=== PATIENT | male | born 1985 | race American Indian/Alaskan Native ===

== ENCOUNTER 2016-11-20 16:27 | Emergency (ER) | payer MEDICARE, MEDICAID ==
[~2016-11-20] VITALS: Ht 182.9 cm; Wt 70.0 kg
[~2016-11-20 16:27] MED LIST: AMBI5TAB PO; ARIP30 PO; ARIP400P IM; LORA-474 PO
[2016-11-20 16:46] VITALS: BP 120/71; PULSE 100; RESP 15; TEMP 97.5; O2SAT 100
[2016-11-20] MEDS ORDERED: OLANZapine IM 10 MG VIAL IM ONE ×2 (16:51→17:00)
[2016-11-20] MEDS ORDERED: LORazepam 2 MG/ML VIAL ONE (16:51)
[2016-11-20] MEDS ORDERED: diphenhydrAMINE HCL 50 MG/ML VIAL IM ONE (17:00)
[2016-11-20] MEDS ORDERED: LORazepam 2 MG/ML VIAL IM ONE (17:00)
--- NOTE | 2016-11-20 17:01 | PD ---
HPI Chief Complaint: Psychiatric Symptoms Time Seen by Provider: 16:51 Travel History International Travel<30 days: No Contact w/Intl Traveler<30days: No Traveled to known affect area: No History of Present Illness HPI This is a 31-year-old gentleman with a history of schizophrenia, who is brought in under police Swartz act after he was found to be acutely psychotic. The patient has flight of ideas and is randomly talking about being raped his and other people being raped. When trying to get further details, the patient is unable to give any further details. When asked why he was agitated, patient goes on to multiple different subjects and cannot stay coherent to 1 specific subject. The patient denies any ingestion of drugs or alcohol. 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 The patient also talks about putting peoples bones back together as a medic. The patient then immediately stated that he was not allowed in the secondary to having other issues. The patient denies any pain. There are no other symptoms elicited. PFSH Past Medical History Asthma: No Anxiety: Yes Depression: No Diminished Hearing: No Endocrine: Yes Psychiatric: Yes Schizophrenia: Yes Thyroid Disease: Yes (PER MOTHER) Social History Alcohol Use: Yes (occasional) Tobacco Use: Yes Substance Use: No Allergies-Medications (Allergen,Severity, Reaction): Coded Allergies: Seroquel (Verified Allergy, Severe, Bradycardia, 03/24/16) Reported Meds & Prescriptions Reported Meds & Active Scripts Active Reported Abilify (Aripiprazole) 30 Mg Tab 30 Mg PO DAILY Review of Systems ROS Limitations: Uncooperative, Combative, Other: (patient is severely psychotic and combative. He is very agitated and aggressive.) Except as stated in HPI: all other systems reviewed are Neg Psychiatric: Positive: Disorder of Thought, Other (agitated and aggressive) Physical Exam Narrative GENERAL: Well-developed well-nourished gentleman who is acutely psychotic. SKIN: Warm and dry. HEAD: Atraumatic. Normocephalic. EYES:No scleral icterus. No injection or drainage. ENT: Mucous membranes pink and moist. NECK: Trachea midline. Supple. CARDIOVASCULAR: Regular rate and rhythm. No murmur appreciated. RESPIRATORY: No accessory muscle use. Clear to auscultation. Breath sounds equal bilaterally. GASTROINTESTINAL: Abdomen soft, non-tender, nondistended. Hepatic and splenic margins not palpable. MUSCULOSKELETAL: No obvious deformities. No edema. NEUROLOGICAL: Awake and psychotic. No obvious cranial nerve deficits. Motor grossly within normal limits. Normal speech. PSYCHIATRIC: She really psychotic with flight of ideas. Insight and judgment is abnormal. Data Data Last Documented VS Vital Signs Date Time Temp Pulse Resp B/P Pulse Ox O2 Delivery O2 Flow Rate FiO2 11/20/16 16:46 97.5 100 15 120/71 100 Orders Olanzapine Inj (Zyprexa Inj) (11/20/16 16:51) Lorazepam Inj (Ativan Inj) (11/20/16 16:51) Olanzapine Inj (Zyprexa Inj) (11/20/16 17:00) Lorazepam Inj (Ativan Inj) (11/20/16 17:00) Diphenhydramine Inj (Benadryl Inj) (11/20/16 17:00) Complete Blood Count With Diff (11/20/16 17:10) Comprehensive Metabolic Panel (11/20/16 17:10) Psych Screen (11/20/16 17:10) Drug Screen, Random Urine (11/20/16 17:10) Alcohol (Ethanol) (11/20/16 17:10) Diet Regular Basic (11/20/16 Dinner) MDM Medical Decision Making Medical Screen Exam Complete: Yes Emergency Medical Condition: Yes Medical Record Reviewed: Yes Differential Diagnosis Acute exacerbation of schizophrenia. Versus substance induced mood disorder metabolic derangement. Narrative Course 31-year-old gentleman with obvious schizophrenic, presents today with complaints of delusional thought process. The patient is in obvious acute psychosis. He is refusing laboratory tests. He came in acutely psychotic and was given 10 mg of Zyprexa, 25 mg of Benadryl, 2 mg of Ativan. Diagnosis Primary Impression: Acute psychosis Additional Impressions: Personal history of schizophrenia medically clear. Ted Beal MD Nov 20, 2016 17:01
[2016-11-20] MEDS ORDERED: ABIL30TA2 PO (17:08)
[2016-11-20 18:00] VITALS: BP 137/86; PULSE 84; RESP 18; TEMP 98.7; O2SAT 96
[2016-11-20] MEDS ORDERED: ZYPR2.5T2 PO (18:59)
[2016-11-20 22:17] VITALS: BP 107/61; PULSE 69; RESP 19; O2SAT 98
[2016-11-21 02:05] VITALS: BP 108/52; PULSE 74; RESP 18; O2SAT 99
[2016-11-21 06:26] VITALS: BP 120/67; PULSE 68; RESP 18; O2SAT 99
[2016-11-21 11:02] VITALS: BP 124/79; PULSE 91; RESP 18
== END 2016-11-21 13:52 ==
LOC: NEPJ 16:27
DX: F20.0 Paranoid schizophrenia (principal)
CPT/HCPCS: 96372; 99285; J1200; J2060

== ENCOUNTER 2017-06-15 19:11 | Inpatient (IN) | payer MEDICARE, MEDICAID ==
[~2017-06-15] VITALS: Ht 185.4 cm; Wt 59.2 kg
[~2017-06-15 19:11] MED LIST changes: +ABIL30TA2 PO; -AMBI5TAB PO; -ARIP30 PO; -ARIP400P IM; -LORA-474 PO; +ZYPR2.5T2 PO
[2017-06-15 19:24] VITALS: BP 104/66; PULSE 107; RESP 20; TEMP 98.7; O2SAT 97
[2017-06-15 21:19] LABS: BASOPHIL % 0.2 % (0.0-2.0); EOSINOPHIL % 0.4 % (0.0-4.0); HEMATOCRIT 45.3 % (39.0-51.0); HEMO FLAGS DIFF FINAL; LYMPH % 20.6 % (9.0-44.0); MEAN CELL VOLUME 90.1 FL (80.0-100.0); MEAN CORPUSCULAR HEMOGLOBIN 31.4 PG (27.0-34.0); MEAN CORPUSCULAR HGB CONC 34.9 % (32.0-36.0); MONO % 5.4 % (0.0-8.0); NEUT % 73.4 % (16.0-70.0); PLATELET COUNT 169 TH/MM3 (150-450); RED BLOOD COUNT 5.03 MIL/MM3 (4.50-5.90); RED CELL DISTRIBUTION WIDTH 12.2 % (11.6-17.2); WHITE BLOOD COUNT 9.5 TH/MM3 (4.0-11.0)
[2017-06-15 21:34] VITALS: BP_SYST 109; BP_DIAS 35; BP_DIAS 55; PULSE 86; RESP 18; O2SAT 98
[2017-06-15 21:53] LABS: ANION GAP 8 MEQ/L (5-15); AST (GOT) 25 U/L (15-37); BICARBONATE 27.1 MEQ/L (21.0-32.0); BLOOD UREA NITROGEN 10 MG/DL (7-18); CHLORIDE 101 MEQ/L (98-107); GLOMERULAR FILTRATION RATE 94 ML/MIN (>89); POTASSIUM 3.4 MEQ/L (3.5-5.1); SODIUM (NA) 136 MEQ/L (136-145)
[2017-06-15 21:55] LABS: ALT (GPT) 19 U/L (12-78)
[2017-06-15 21:56] LABS: ALKALINE PHOSPHATASE 51 U/L (45-117); TOTAL BILIRUBIN ADULT 0.8 MG/DL (0.2-1.0)
[2017-06-15 22:01] LABS: ALCOHOL LESS THAN 3 MG/DL (0-5)
[2017-06-15] MEDS ORDERED: LORA-392 PO (23:30)
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
[2017-06-16] MEDS ORDERED: POTASSIUM CHLORIDE 20 MEQ CONTROLLED RELEASE TAB PO ONE (02:00)
[2017-06-16 09:30] VITALS: BP 125/59; PULSE 60; RESP 18; O2SAT 100
[2017-06-16 10:00] VITALS: BP 116/81; PULSE 81; RESP 20
[2017-06-16] MEDS ORDERED: diphenhydrAMINE HCL 50 MG CAP PO PRN (11:15)
[2017-06-16] MEDS ORDERED: ALUMINUM/MAGNESIUM/SIMETH 30 ML CUP PO PRN (11:15)
[2017-06-16] MEDS ORDERED: LORazepam 1 MG TAB PO PRN (11:15)
[2017-06-16] MEDS ORDERED: MAGNESIUM HYDROXIDE SUSP 30 ML CUP PO PRN (11:15)
[2017-06-16] MEDS ORDERED: ACETAMINOPHEN 325 MG TAB PO PRN (11:15)
[2017-06-16] MEDS ORDERED: LORazepam 2 MG/ML VIAL IM PRN ×2 (11:15→16:45)
[2017-06-16] MEDS: ARIPiprazole 30 MG TAB PO SCH (11:15)
[2017-06-16] MEDS ORDERED: diphenhydrAMINE HCL 50 MG/ML VIAL IM PRN (11:15)
[2017-06-16] MEDS ORDERED: traZODone HCL 50 MG TAB PO PRN (11:15)
[2017-06-16] MEDS ORDERED: OLANZapine ODT 5 MG TAB PO ONE (11:15)
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
[2017-06-16 12:12] VITALS: BP 104/53; PULSE 64; RESP 19; TEMP 97.3; O2SAT 100
[2017-06-16 18:13] VITALS: BP 111/65; PULSE 65; RESP 18; TEMP 97.8; O2SAT 100
[2017-06-17 05:52] VITALS: BP 123/81; PULSE 68; RESP 18; TEMP 97.9; O2SAT 99
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
[2017-06-17 18:03] VITALS: BP 105/62; PULSE 72; RESP 18; TEMP 97.3; O2SAT 98
--- NOTE | 2017-06-17 23:25 | EKG ---
Date Performed: 06/17/2017 Time Performed: 10:26:18 PTAGE: 31 years EKG: SINUS BRADYCARDIA BORDERLINE ECG NO PREVIOUS TRACING DOCTOR: Cedric Abreu Interpretating Date/Time 06/17/2017 23:25:04
[2017-06-18 05:40] VITALS: BP 115/55; PULSE 63; RESP 18; TEMP 98.2; O2SAT 99
[2017-06-18] MEDS: ARIPiprazole 30 MG TAB PO SCH (08:03)
[2017-06-18] MEDS: OLANZapine 2.5 MG TAB PO SCH ×2 (08:04→21:01)
--- NOTE | 2017-06-18 13:16 | HHI.PYPN ---
Subjective Remarks Pt seen and discussed with staff. He remains psychotic and has been observed conversing with the window, but has been less seclusive and medicaion compliant. He continues to express delusions that parasites are infesting him. Mental Status Examination Appearance: Disheveled Consciousness: Alert Orientation: Person (at least) Motor Activity: Normal gait, Other (no motor abnormalities noted) Speech: Other (rambling, disjointed) Language: Neologism, Perseveration Fund of Knowledge: Adequate (difficult to assess given patient's mental state) Attention and Concentration: Easily Distracted Memory: Unremarkable (difficult to assess given patient's mental state) Mood: Anxious Affect: Anxious Thought Process & Associations: Loose associations, Disorganized Thought Content: Bizarre thinking, Ideas of reference, Delusional Hallucination Type: Auditory (appears internally stimulated) Delusion Type: Paranoid, Other Suicidal Ideation: No (unreliable contract for safety) Suicidal Plan: No Suicidal Intention: No Homicidal Ideation: No Homicidal Plan: No Homicidal Intention: No Insight: Poor Judgment: Poor Results Vitals/IOs Vital Signs Date Time Temp Pulse Resp B/P (MAP) Pulse Ox O2 Delivery O2 Flow Rate FiO2 06/18/17 05:40 98.2 63 18 115/55 (75) 99 06/16/17 10:00 Room Air Assessment & Plan Problem List: (1) Schizophrenia, paranoid, chronic ICD Codes: F20.0 - Paranoid schizophrenia (2) Cannabis abuse ICD Codes: F12.10 - Cannabis abuse, uncomplicated Assessment & Plan continue current tx plan. Estimated LOS: days Justification for Cont. Inpt. impairments in reality testing Request HC Surrog/Guard Advoc?: Yes Colette Hernandez MD Jun 18, 2017 13:16
[2017-06-18 17:31] VITALS: BP 108/53; PULSE 58; RESP 18; TEMP 98.2; O2SAT 99
[2017-06-19 05:13] VITALS: BP 111/69; PULSE 77; RESP 18; TEMP 98; O2SAT 98
[2017-06-19] MEDS: ARIPiprazole 30 MG TAB PO SCH (08:56)
[2017-06-19] MEDS: OLANZapine 2.5 MG TAB PO SCH ×2 (08:56→20:46)
--- NOTE | 2017-06-19 14:16 | HHI.PYPN ---
Subjective Remarks Pt seen and discussed with staff. He is compliant with medications and care. He remains bizarre and delusional. He was observed cursing and screaming during phone call but no one was on the phone. He engages in disorganzied behaviors. He states that he has made a device using the [employer] telescope to bring "winter , monthly, winter, monthly seasons". NO SI/HI Mental Status Examination Appearance: Disheveled Consciousness: Alert Orientation: Person (at least) Motor Activity: Normal gait, Other (no motor abnormalities noted) Speech: Other (rambling, disjointed) Language: Neologism, Perseveration Fund of Knowledge: Adequate (difficult to assess given patient's mental state) Attention and Concentration: Easily Distracted Memory: Unremarkable (difficult to assess given patient's mental state) Mood: Anxious Affect: Anxious Thought Process & Associations: Loose associations, Disorganized Thought Content: Bizarre thinking, Ideas of reference, Delusional Hallucination Type: Auditory (appears internally stimulated) Delusion Type: Paranoid, Other Suicidal Ideation: No (unreliable contract for safety) Suicidal Plan: No Suicidal Intention: No Homicidal Ideation: No Homicidal Plan: No Homicidal Intention: No Insight: Poor Judgment: Poor Results Vitals/IOs Vital Signs Date Time Temp Pulse Resp B/P (MAP) Pulse Ox O2 Delivery O2 Flow Rate FiO2 06/19/17 05:13 98.0 77 18 111/69 (83) 98 06/16/17 10:00 Room Air Assessment & Plan Problem List: (1) Schizophrenia, paranoid, chronic ICD Codes: F20.0 - Paranoid schizophrenia (2) Cannabis abuse ICD Codes: F12.10 - Cannabis abuse, uncomplicated Assessment & Plan Continue current treatment Estimated LOS: days Justification for Cont. Inpt. impairments in reality testing Request HC Surrog/Guard Advoc?: Yes Colette Hernandez MD Jun 19, 2017 14:16
[2017-06-20 06:00] VITALS: BP 106/63; PULSE 54; RESP 18; TEMP 98.6; O2SAT 100
[2017-06-20] MEDS: OLANZapine 2.5 MG TAB PO SCH (09:22)
[2017-06-20] MEDS: ARIPiprazole 30 MG TAB PO SCH (09:22)
--- NOTE | 2017-06-20 10:56 | HHI.PYPN ---
Subjective Remarks Patient seen and examined with nurse. Chart reviewed. Case discussed with nursing staff. Per nursing staff, the patient remains preoccupied and delusional regarding parasites. He reportedly is refusing laboratories. On my examination today, the patient is somewhat more coherent and his thought process less grossly disorganized. He says that he is "cooperating. Calm down. Trying to find the, lot of unknowns. I see the car go down. Government flying low. Lot of buildings go down." Alludes to special intelligence and the [place]. Per nursing, patient is having extended conversations on the unit telephone but there is no one on the other end of the connection. Denies side effects from medications. No physical complaints. He remains disheveled and malodorous and cannot recall if he has showered or not on the unit; I have encouraged him to bathe today. Review of Systems ROS Limitations: Psychotic, Poor Historian Except as stated in HPI: all other systems reviewed are Neg Mental Status Examination Appearance: Disheveled, Malodorous Consciousness: Alert Orientation: Person, Place (hospital) Motor Activity: Other (no hand tremor, no cogwheeling, no dystonias, no dyskinesias noted.) Speech: Other (rambling) Language: Neologism, Perseveration Fund of Knowledge: Adequate (difficult to assess given psychosis) Attention and Concentration: Easily Distracted Memory: Unremarkable (difficult to assess given psychosis) Mood: Good Affect: Blunt (pending towards flat) Thought Process & Associations: Loose associations, Disorganized (a little less today) Thought Content: Bizarre thinking, Ideas of reference, Delusional Hallucination Type: Auditory (remains internally stimulated) Delusion Type: Paranoid Suicidal Ideation: No Suicidal Plan: No Suicidal Intention: No Homicidal Ideation: No Homicidal Plan: No Homicidal Intention: No Insight: Poor Judgment: Poor Results Labs Labs reviewed Vitals/IOs Vital Signs Date Time Temp Pulse Resp B/P (MAP) Pulse Ox O2 Delivery O2 Flow Rate FiO2 06/20/17 06:00 98.6 54 18 106/63 (77) 100 06/16/17 10:00 Room Air Assessment & Plan Problem List: (1) Schizophrenia, paranoid, chronic ICD Codes: F20.0 - Paranoid schizophrenia (2) Cannabis abuse ICD Codes: F12.10 - Cannabis abuse, uncomplicated Assessment & Plan Modest improvement in thought disorganization and other psychotic symptoms with reinitiation of antipsychotic medication. I will titrate Zyprexa to 5 mg twice daily to try to bring psychotic symptoms under better control. Continue to monitor on the high acuity unit. Continue other medications and care as ordered. Justification for Cont. Inpt. Impairment in reality construction. Impairment in self-care. Medication changes. High risk for decompensation in less restrictive environment. Discharge Planning Pending psychiatric stabilization. Request HC Surrog/Guard Advoc?: Yes Wing Haines MD Jun 20, 2017 10:56
[2017-06-20] MEDS: OLANZapine 5 MG TAB PO SCH (20:37)
[2017-06-21 05:52] VITALS: BP 136/67; PULSE 50; RESP 17; TEMP 97.3; O2SAT 97
--- NOTE | 2017-06-21 09:11 | HHI.PYPN ---
Subjective Remarks Patient seen and examined with nurse. Chart reviewed. Case discussed in treatment team. Per nursing staff, patient remains preoccupied, suspicious and delusional. On my examination today, the patient says that he is ready to go home. He tells me that he showered yesterday. He says that his plan is to get discharged in and get his television fixed. He does seem more relevant and coherent in conversation today, and he is able to speak at some length about a subject of interest to him, namely automobiles. No SI or HI. Denies side effects from medications. No physical complaints. Review of Systems ROS Limitations: Psychotic, Poor Historian Except as stated in HPI: all other systems reviewed are Neg Mental Status Examination Appearance: Other (grooming improved) Consciousness: Alert Orientation: Person, Place (hospital) Motor Activity: Other (no motor abnormalities noted) Speech: Unremarkable Language: Adequate Fund of Knowledge: Adequate Attention and Concentration: Adequate Memory: Unremarkable Mood: Good Affect: Blunt Thought Process & Associations: Circumstantial Thought Content: Appropriate, Delusional Hallucination Type: None Delusion Type: None Suicidal Ideation: No Suicidal Plan: No Suicidal Intention: No Homicidal Ideation: No Homicidal Plan: No Homicidal Intention: No Insight: Poor Judgment: Poor Results Labs Labs reviewed. No new labs. Vitals/IOs Vital Signs Date Time Temp Pulse Resp B/P (MAP) Pulse Ox O2 Delivery O2 Flow Rate FiO2 06/21/17 05:52 97.3 50 17 136/67 (90) 97 Assessment & Plan Problem List: (1) Schizophrenia, paranoid, chronic ICD Codes: F20.0 - Paranoid schizophrenia (2) Cannabis abuse ICD Codes: F12.10 - Cannabis abuse, uncomplicated Assessment & Plan Patient responding well to current combination of antipsychotics. Administer Abilify Maintena 400mg IM. Continue oral Abilify supplementation. Continue Zyprexa as ordered. Check a BMP. Continue to monitor on high acuity unit. Continue other meds and care as ordered. Justification for Cont. Inpt. Med changes. Resolving impairment in reality construction. Discharge Planning Case d/w counselor. He will reach out to mother today. Possible d/c within the next few days. Request HC Surrog/Guard Advoc?: Yes Wing Haines MD Jun 21, 2017 09:11
[2017-06-21] MEDS: OLANZapine 5 MG TAB PO SCH ×2 (09:38→20:39)
[2017-06-21] MEDS: ARIPiprazole 30 MG TAB PO SCH (09:38)
--- NOTE | 2017-06-21 13:40 | PD.TTN ---
Patient Problems 1. Discharge planning 2. Medication compliance 3. Knowledge deficit 4. Lack of coping skills Progress Toward Goals Provider Present: Dr. Kwan Haines Provider Input: Pt medication regiment is being evaluated and pt will be considered for long acting injection to assist with medication compliance after discharge. Nurse(s) Present: Dana Ramos, RN Nurse(s) Input: Pt appears preoccupied, delusional, paranoid, guarded, medication compliant and withdrawn mainly to room. Psychiatric Counselors Present: PATI Easley Psych Therapist Input: Pt continues to appear delusional, paranoid, psychotic, cooperative and appropriate. He maintains fears related to parasites and can be observed responding to internal stimuli including having lengthy conversations with just himself on the unit phone. No noted agitation or aggression. Insight into condition and need for care appears poor. Pt appears to be able to utilize some level of emotional regulation and coping skills as he has not had outbursts despite some agitation. Group Spec/RT/OT/GARCIA Present: Austin Reese OT Group Spec/RT/OT/GARCIA Input: Pt does not attend or participate in groups. Discharge Plan [facility], Other Pt will return home to live with his mother once discharged and will follow up with [facility]. Documentation Scribe: PATI Easley Jonathan LMHC Jun 21, 2017 13:40
[2017-06-21] MEDS ORDERED: [UNRECOGNIZED DRUG - OTHER] IM ONE (18:00)
[2017-06-21 18:18] VITALS: BP 116/60; PULSE 68; RESP 18; TEMP 97.1
[2017-06-22 05:38] VITALS: BP 129/68; PULSE 55; RESP 18; TEMP 97.6; O2SAT 100
[2017-06-22] MEDS: OLANZapine 5 MG TAB PO SCH (09:42)
[2017-06-22] MEDS: ARIPiprazole 30 MG TAB PO SCH (09:42)
[2017-06-22] MEDS ORDERED: ABIL30TA2 PO (12:08)
[2017-06-22] MEDS ORDERED: OLAN5TAB PO (12:08)
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
== END 2017-06-22 17:55 | disposition home or self-care (01) | DRG 885 ==
LOC: NEDAMB 19:11 → NEDA 06-16 11:12 → H270 06-16 11:35
PROVIDERS: ADMIT Psychiatry & Neurology Psychiatry; ATTEND Psychiatry & Neurology Psychiatry
DX: F20.0 Paranoid schizophrenia (principal); F41.9 Anxiety disorder, unspecified; F12.10 Cannabis abuse, uncomplicated; Z72.0 Tobacco use
CPT/HCPCS: 80053; 80307; 85025; 93005

== ENCOUNTER 2017-06-29 19:57 | Inpatient (IN) | payer MEDICARE, MEDICAID, OTHER ==
[~2017-06-29] VITALS: Ht 182.9 cm; Wt 66.0 kg
[~2017-06-29 19:57] MED LIST changes: +OLAN5TAB PO; -ZYPR2.5T2 PO
[2017-06-29 20:02] VITALS: PULSE 96; RESP 18; O2SAT 98
--- NOTE | 2017-06-29 21:02 | PD ---
HPI Chief Complaint: Psychiatric Symptoms Time Seen by Provider: 20:40 Travel History International Travel<30 days: No Contact w/Intl Traveler<30days: No Traveled to known affect area: No History of Present Illness HPI 31-year-old male presents to the emergency Department under Swartz act for psychiatric evaluation. Patient has history of schizophrenia. He has broken thoughts and tangential speech. Patient does report that he is not currently taking his medications due to waiting for his disability check. Patient is alert and oriented to person, place, time. He has no medical complaints at this time. PFSH Past Medical History Asthma: No Anxiety: Yes Depression: Yes Cancer: No Cardiovascular Problems: No Developmental Delay: No Diminished Hearing: No Endocrine: Yes Gastrointestinal Disorders: Yes Genitourinary: No Headaches: No Musculoskeletal: No Neurologic: No Psychiatric: Yes (Hx of treatment for Schizophrenia, PTSD) Reproductive: No Respiratory: No Schizophrenia: Yes Thyroid Disease: Yes (PER MOTHER) ?: Not Past Surgical History Other Surgery: No (SEE ED HISTORY AND PHYSICAL) Social History Alcohol Use: Yes (occasional) Tobacco Use: Yes Substance Use: Yes (SYNTHETIC WEED OVER 5 YEARS AGO) Allergies-Medications (Allergen,Severity, Reaction): Coded Allergies: quetiapine (Unverified Allergy, Severe, Bradycardia, 04/13/17) Reported Meds & Prescriptions Reported Meds & Active Scripts Active Olanzapine 5 Mg Tab 5 Mg PO BID 15 Days Abilify (Aripiprazole) 30 Mg Tab 30 Mg PO DAILY 15 Days Review of Systems ROS Limitations: Psychotic Except as stated in HPI: all other systems reviewed are Neg Physical Exam Narrative GENERAL: Well-nourished, well-developed male patient, afebrile SKIN: Focused skin assessment warm/dry. HEAD: Normocephalic. Atraumatic. EYES: No scleral icterus. No injection or drainage. NECK: Supple, trachea midline. No JVD or lymphadenopathy. CARDIOVASCULAR: Regular rate and rhythm without murmurs, gallops, or rubs. RESPIRATORY: Breath sounds equal bilaterally. No accessory muscle use. Lungs sounds are clear to auscultation GASTROINTESTINAL: Abdomen soft, non-tender, nondistended. MUSCULOSKELETAL: No cyanosis, or edema. PSYCHIATRIC: Patient appears delusional, talking to the cruz and his food. He has tangential speech Data Data Last Documented VS Vital Signs Date Time Temp Pulse Resp B/P (MAP) Pulse Ox O2 Delivery O2 Flow Rate FiO2 06/29/17 21:18 96.7 103 18 127/77 (94) 100 Room Air Orders Orders Psych Screen (06/29/17 20:35) Complete Blood Count With Diff (06/29/17 20:40) Comprehensive Metabolic Panel (06/29/17 20:40) Drug Screen, Random Urine (06/29/17 20:40) Alcohol (Ethanol) (06/29/17 20:40) Admit To Inpatient Psych (06/29/17 ) Vital Signs (Adult) JUAN.Q12H.E (06/29/17 22:05) Activity Oob Ad Rachel (06/29/17 22:05) Level Of Observation (Psych) (06/29/17 22:05) Diet Regular Basic (06/30/17 Breakfast) Basic Metabolic Panel (Bmp) (06/30/17 06:00) Lipid Profile (06/30/17 06:00) Hemoglobin (Hgb) A1c (06/30/17 06:00) Electrocardiogram (06/30/17 ) Admit Order (Ed Use Only) (06/29/17 22:05) Labs Laboratory Tests Test 06/29/17 20:57 06/29/17 21:20 White Blood Count 6.6 TH/MM3 Red Blood Count 4.85 MIL/MM3 Hemoglobin 15.2 GM/DL Hematocrit 44.1 % Mean Corpuscular Volume 91.0 FL Mean Corpuscular Hemoglobin 31.4 PG Mean Corpuscular Hemoglobin Concent 34.5 % Red Cell Distribution Width 12.5 % Platelet Count 219 TH/MM3 Mean Platelet Volume 9.2 FL Neutrophils (%) (Auto) 71.1 % Lymphocytes (%) (Auto) 18.6 % Monocytes (%) (Auto) 7.8 % Eosinophils (%) (Auto) 2.0 % Basophils (%) (Auto) 0.5 % Neutrophils # (Auto) 4.7 TH/MM3 Lymphocytes # (Auto) 1.2 TH/MM3 Monocytes # (Auto) 0.5 TH/MM3 Eosinophils # (Auto) 0.1 TH/MM3 Basophils # (Auto) 0.0 TH/MM3 CBC Comment DIFF FINAL Differential Comment Blood Urea Nitrogen 15 MG/DL Creatinine 1.17 MG/DL Random Glucose 96 MG/DL Total Protein 8.1 GM/DL Albumin 4.2 GM/DL Calcium Level 9.3 MG/DL Alkaline Phosphatase 53 U/L Aspartate Amino Transf (AST/SGOT) 39 U/L Alanine Aminotransferase (ALT/SGPT) 26 U/L Total Bilirubin 0.5 MG/DL Sodium Level 136 MEQ/L Potassium Level 3.9 MEQ/L Chloride Level 102 MEQ/L Carbon Dioxide Level 28.4 MEQ/L Anion Gap 6 MEQ/L Estimat Glomerular Filtration Rate 74 ML/MIN Ethyl Alcohol Level LESS THAN 3 MG/DL Urine Opiates Screen NEG Urine Barbiturates Screen NEG Urine Amphetamines Screen NEG Urine Benzodiazepines Screen NEG Urine Cocaine Screen NEG Urine Cannabinoids Screen NEG MDM Medical Decision Making Medical Screen Exam Complete: Yes Emergency Medical Condition: Yes Medical Record Reviewed: Yes Differential Diagnosis Psychosis versus schizophrenia versus substance abuse Narrative Course 31-year-old male presents to the emergency Department under Swartz act for psychiatric evaluation. CBC, CMP, urine drug screen, alcohol level are ordered and pending. CBC shows no acute abnormality. CMP shows no acute abnormality. UDS is negative. Alcohol level is less than 3. Patient is medically cleared for psychiatric screening and disposition. Mental health screening discussed with the patient. Psychiatric screen ordered. Diagnosis Primary Impression: Schizophrenia Qualified Codes: F20.9 - Schizophrenia, unspecified Condition: Stable Michelle Sahni CARLOS Jun 29, 2017 21:02
[2017-06-29 21:11] LABS: AUTOMATED NEUTROPHIL # 4.7 TH/MM3 (1.8-7.7); BASOPHIL % 0.5 % (0.0-2.0); EOSINOPHIL # 0.1 TH/MM3 (0-0.4); HEMATOCRIT 44.1 % (39.0-51.0); HEMOGLOBIN 15.2 GM/DL (13.0-17.0); LYMPH % 18.6 % (9.0-44.0); LYMPHOCYTE # 1.2 TH/MM3 (1.0-4.8); MEAN CORPUSCULAR HEMOGLOBIN 31.4 PG (27.0-34.0); MEAN CORPUSCULAR HGB CONC 34.5 % (32.0-36.0); MEAN PLATELET VOLUME 9.2 FL (7.0-11.0); MONO % 7.8 % (0.0-8.0); MONOCYTE # 0.5 TH/MM3 (0-0.9); NEUT % 71.1 % (16.0-70.0); PLATELET COUNT 219 TH/MM3 (150-450); RED BLOOD COUNT 4.85 MIL/MM3 (4.50-5.90); RED CELL DISTRIBUTION WIDTH 12.5 % (11.6-17.2); WHITE BLOOD COUNT 6.6 TH/MM3 (4.0-11.0)
[2017-06-29 21:18] VITALS: BP 127/77; PULSE 103; RESP 18; TEMP 96.7; O2SAT 100
[2017-06-29 21:38] LABS: ALKALINE PHOSPHATASE 53 U/L (45-117); ALT (GPT) 26 U/L (12-78); TOTAL BILIRUBIN ADULT 0.5 MG/DL (0.2-1.0); TOTAL PROTEIN 8.1 GM/DL (6.4-8.2)
[2017-06-29 21:39] LABS: ALBUMIN 4.2 GM/DL (3.4-5.0); AST (GOT) 39 U/L (15-37); BICARBONATE 28.4 MEQ/L (21.0-32.0); BLOOD UREA NITROGEN 15 MG/DL (7-18); CALCIUM 9.3 MG/DL (8.5-10.1); CHLORIDE 102 MEQ/L (98-107); CREATININE 1.17 MG/DL (0.60-1.30); GLOMERULAR FILTRATION RATE 74 ML/MIN (>89); GLUCOSE,RANDOM 96 MG/DL (74-106); SODIUM (NA) 136 MEQ/L (136-145)
[2017-06-29] MEDS ORDERED: diphenhydrAMINE HCL 50 MG/ML VIAL - HS PRN IM (22:30)
[2017-06-29] MEDS ORDERED: traZODone HCL 50 MG TAB PO PRN (22:30)
[2017-06-29] MEDS ORDERED: BENZTROPINE MESYLATE 2 MG/2 ML VIAL IM PRN (22:30)
[2017-06-29] MEDS ORDERED: LORazepam 2 MG/ML VIAL IM PRN (22:30)
[2017-06-29] MEDS ORDERED: diphenhydrAMINE HCL 50 MG/ML VIAL IM PRN (22:30)
[2017-06-29] MEDS ORDERED: diphenhydrAMINE HCL 50 MG CAP - HS PRN PO (22:30)
[2017-06-29] MEDS ORDERED: MAGNESIUM HYDROXIDE SUSP 30 ML CUP PO PRN (22:30)
[2017-06-29] MEDS ORDERED: ACETAMINOPHEN 325 MG TAB PO PRN (22:30)
[2017-06-29] MEDS ORDERED: LORazepam 1 MG TAB PO PRN (22:30)
[2017-06-29] MEDS ORDERED: hydrOXYzine HCL 50 MG TAB PO PRN (22:30)
[2017-06-29] MEDS ORDERED: BENZTROPINE MESYLATE 1 MG TAB PO PRN (22:30)
[2017-06-29] MEDS ORDERED: ALUMINUM/MAGNESIUM/SIMETH 30 ML CUP PO PRN (22:30)
[2017-06-29] MEDS ORDERED: diphenhydrAMINE HCL 50 MG CAP PO PRN (23:00)
[2017-06-29 23:07] VITALS: BP 111/65; PULSE 95; RESP 18; TEMP 96.6; O2SAT 97
[2017-06-30] MEDS: NICOTINE 21 MG/24 HR PATCH T-DERMAL SCH (09:00)
[2017-06-30] MEDS: ARIPiprazole 30 MG TAB PO SCH (09:18)
[2017-06-30] MEDS: OLANZapine 5 MG TAB PO SCH ×2 (09:18→21:42)
--- NOTE | 2017-06-30 11:04 | HHI.HP ---
Provisional Diagnosis Admission Date Jun 29, 2017 at 22:07 [place] I. 1. Schizophrenia, paranoid type, acute exacerbation 2. Cannabis abuse (although most recent UTox negative) [place] II. Deferred Certification of Person's Competence To Provide Express and Informed Consent I have personally examined Brittney Curran , a person being served at [facility] on, Jun 30, 2017 11:04. Express and informed consent means consent voluntarily given in writing, by a competent person, after sufficient explanation and disclosure of the subject matter involved to enable the person to make a knowing and willful decision without any element of force, fraud, deceit, duress, or other form of constraint or coercion. This person is 18 years of age or older, is not now known to be incompetent to consent to treatment with a guardian advocate, and does not have a health care surrogate or proxy currently making medical treatment decisions. I have found this person to be one of the following: [] Competent to provide express and informed consent, as defined above, for voluntary admission to this facility and is competent to provide express and informed consent for treatment. He/she has the consistent capacity to make well reasoned, willful, and knowing decisions concerning his or her medical or mental health treatment. The person fully and consistently understands the purpose of the admission for examination/placement and is fully capable of personally exercising all rights assured [place] [x] Incompetent to provide express and informed consent to voluntary admission, and this is incompetent to provide express and informed consent to treatment. The person must be transferred to involuntary status and a petition for a guardian advocate filed with the Circuit Court. [] Refusing to provide express and informed consent to voluntary admission but is competent to provide express and informed consent for treatment. The person must be discharged or transferred to involuntary status. Form shall be completed within 24 hours of a person's arrival at the receiving facility and filed in the clinical record of each person: 1. Admitted on a voluntary basis 2. Permitted to provide express and informed consent to his/her own treatment 3. Allowed to transfer from involuntary to voluntary status 4. Prior to permitting a person to consent to his or her own treatment after having been previously found incompetent to consent to treatment. History of Present Illness Capacity: Lacks Capacity Psych Chief Complaint: Psychosis HPI Mr. Curran is a 31-year-old male with a history of schizophrenia brought into the emergency department under a Swartz act alleging that he was throwing items at cars in the road and passersby. Patient was recently discharged from the inpatient psychiatric unit on 06/22. I did speak with his mother on 06/28 regarding need for prior auth for Zyprexa, which was completed by [facility]. She also shared with me at that time that patient did not follow up with his outpatient provider as scheduled. EMR reviewed. Patient seen and examined with nurse. Chart reviewed. Case discussed with nursing staff who reports the patient was somewhat agitated overnight and required Ativan PRN. On my exam, patient presents as malodorous, although he is less visibly disheveled than when he was first admitted last time. Likewise , he is less disorganized. He is presently calm. He says that he has come in "because they say I was throwing things in the road." He initially denies doing so but then says that he was doing so because he felt like he was being harassed by a "black lorri." He also alleges that another "black lorri always puts something in my food: ass or tip." He says that this fear of food contamination has caused him to subsist on Skittles for the last day or two. He is somewhat paranoid regarding his mother. He also believes he is a ranger and says that the police disrespected him by not recognizing this fact. He denies any SI or HI. Denies AVH but appears internally preoccupied. Affect is blunted. Remainder of the psychiatric ROS is negative. No physical complaints. Past psychiatric history: History of schizophrenia. Follows outpatient with [facility] for Psychiatry. He confirms that he did not follow up on June 27. Recent hospitalization here at [facility] from 06/16-. Review of Systems ROS Limitations: Psychotic, Poor Historian Except as stated in HPI: all other systems reviewed are Neg Past Psych History Psychological trauma history No reported trauma history. Violence risk - others (6 mos) Presently psychotic and unpredictable. Violence risk - self (6 mos) Presently psychotic and unpredictable. Substance Abuse History Drugs/Alcohol past 12 months History of cannabis abuse. He does not answer when asked about recent use. UTox is negative for cannabinoids on this occasion. I do note he is wearing socks with cannabis leaf silhouettes. Past Family Social History Coded Allergies: quetiapine (Unverified Allergy, Severe, Bradycardia, 04/13/17) Past Medical History See EMR Active Scripts Olanzapine (Olanzapine) 5 Mg Tab, 5 MG PO BID for Mental Health for 15 Days, # 30 TAB 1 Refill Prov:Wing Haines MD 06/22/17 Aripiprazole (Abilify) 30 Mg Tab, 30 MG PO DAILY for Mental Health for 15 Days, #15 TAB 1 Refill Prov:Wing Haines MD 06/22/17 Current Medications Medications (Trade) Dose Ordered Sig/Cecilia Route Start Time Stop Time Status Last Admin (Abilify) 30 mg DAILY PO 06/30/17 09:00 06/30/17 09:18 (ZyPREXA) 5 mg BID PO 06/30/17 09:00 06/30/17 09:18 (Ativan) 1 mg Q6H PRN PO 06/29/17 22:30 06/29/17 22:48 (Ativan Inj) 1 mg Q6H PRN IM 06/29/17 22:30 06/30/17 05:29 (Atarax) 50 mg Q6H PRN PO 06/29/17 22:30 (Benadryl) 50 mg Q6H PRN PO 06/29/17 23:00 06/29/17 22:48 (Benadryl Inj) 50 mg Q6H PRN IM 06/29/17 22:30 06/30/17 05:29 (Cogentin) 1 mg Q12H PRN PO 06/29/17 22:30 (Cogentin Inj) 1 mg Q12H PRN IM 06/29/17 22:30 (Benadryl) 50 mg HS PRN PO 06/29/17 22:30 (Benadryl Inj) 50 mg HS PRN IM 06/29/17 22:30 (Desyrel) 50 mg HS PRN PO 06/29/17 22:30 06/29/17 22:48 (Tylenol) 650 mg Q4H PRN PO 06/29/17 22:30 (Milk Of Magnesia Liq) 30 ml DAILY PRN PO 06/29/17 22:30 (Mag-Al Plus Susp Liq) 30 ml Q6H PRN PO 06/29/17 22:30 (Habitrol 21 Mg Patch.24 Hr) 1 patch DAILY T-DERMAL 06/30/17 09:00 Miscellaneous Information 1 HS T-DERMAL 06/30/17 21:00 Family Psych History See previous records. Limited history from patient because patient is poor historian. Social History Lives with mother. See previous records. Limited history from patient because patient is poor historian. Patient's Strengths (min. 2) In a monitored setting. Verbally fluent. Physical Exam Physical exam completed by ED provider. On my exam, patient in no acute physical distress. No abnormal motor movements noted. Labs and vitals reviewed : Vital Signs Vital Signs Date Time Temp Pulse Resp B/P (MAP) Pulse Ox O2 Delivery O2 Flow Rate FiO2 06/29/17 23:07 96.6 95 18 111/65 (80) 97 06/29/17 21:18 Room Air Lab Results Item Value Date Time White Blood Count 6.6 TH/MM3 06/29/172056 Hemoglobin 15.2 GM/DL 06/29/172056 Platelet Count 219 TH/MM3 06/29/172056 Sodium Level 136 MEQ/L 06/29/172056 Potassium Level 3.9 MEQ/L 06/29/172056 Chloride Level 102 MEQ/L 06/29/172056 Carbon Dioxide Level 28.4 MEQ/L 06/29/172056 Blood Urea Nitrogen 15 MG/DL 06/29/172056 Creatinine 1.17 MG/DL 06/29/172056 Aspartate Amino Transf (AST/SGOT) 39 U/L H 06/29/172056 Alanine Aminotransferase (ALT/SGPT) 26 U/L 06/29/172056 Alkaline Phosphatase 53 U/L 06/29/172056 Urine Opiates Screen NEG 06/29/172119 Urine Barbiturates Screen NEG 06/29/172119 Urine Amphetamines Screen NEG 06/29/172119 Urine Benzodiazepines Screen NEG 06/29/172119 Urine Cocaine Screen NEG 06/29/172119 Urine Cannabinoids Screen NEG 06/29/172119 Ethyl Alcohol Level LESS THAN 3 MG/DL 06/29/172056 EKG read as sinus rhythm with QTc 407ms. Mental Status Examination Appearance: Disheveled (mild), Malodorous Consciousness: Alert Orientation: Person, Place Motor Activity: Other (no motoric abnormalities noted) Speech: Other (somewhat rambling but within normal limits for rate, tone and volume) Language: Adequate Fund of Knowledge: Adequate Attention and Concentration: Easily Distracted Memory: Unremarkable (likely some degree of confabulation in the setting of his psychosis but otherwise unremarkable) Mood: Appropriate Affect: Blunt Thought Process & Associations: Disorganized (mild) Thought Content: Bizarre thinking, Delusional Hallucination Type: None (denies AVH) Delusion Type: Paranoid Suicidal Ideation: No Suicidal Plan: No Suicidal Intention: No Homicidal Ideation: No Homicidal Plan: No Homicidal Intention: No Insight: Poor Judgment: Poor Assessment & Plan Problem List: (1) Schizophrenia, paranoid, chronic ICD Codes: F20.0 - Paranoid schizophrenia (2) Cannabis abuse ICD Codes: F12.10 - Cannabis abuse, uncomplicated Assessment & Plan 31-year-old male with psychiatric history as detailed above who presents under a Swartz act. Patient is presently experiencing psychotic decompensation, perhaps related to non-adherence with medications. However, severity of this decompensation is relatively mild compared to recent hospitalization in May, and so hopefully rapid control of his psychotic symptoms can be achieved. Patient will be hospitalized at this time for stabilization. Admit inpatient. Retain under BA for now. Patient is not capacitated to consent for medications and requires [facility] for this purpose. Continue Abilify 30mg daily and Zyprexa 5mg BID. To consider further titration of Zyprexa if additional antipsychotic action is required. I had previously recommended Abilify Maintena but mother had declined to provide consent; I would still recommend this agent if she will provide consent now. Ativan as needed for anxiety. Benadryl as needed for EPS or sleep. Follow up BMP, HgbA1c and lipid panel ordered by Dr. Rizzo. Vitals every shift. Counselor to see. Dispo planning. ELOS: 3-5 days. Discharge Planning Pending stabilization. Request HC Surrog/Guard Advoc?: Yes Wing Haines MD Jun 30, 2017 11:04
--- NOTE | 2017-06-30 13:34 | EKG ---
Date Performed: 06/30/2017 Time Performed: 09:48:02 PTAGE: 31 years EKG: Sinus rhythm ST ELEVATION, PROBABLY EARLY REPOLARIZATION BORDERLINE ECG Compared to prior tracing no significant change PREVIOUS TRACING : 06/17/2017 10.26 DOCTOR: Victor Manuel Cabello Interpretating Date/Time 06/30/2017 13:31:10
[2017-06-30 18:05] VITALS: BP 105/69; PULSE 73; RESP 18; TEMP 97.4; O2SAT 100
[2017-06-30] MEDS ORDERED: REMOVE OLD NICOTINE PATCH T-DERMAL SCH (21:00)
[2017-07-01 05:36] VITALS: BP 119/71; PULSE 93; RESP 18; TEMP 97.2; O2SAT 99
[2017-07-01] MEDS: NICOTINE 21 MG/24 HR PATCH T-DERMAL SCH (08:28)
[2017-07-01] MEDS: ARIPiprazole 30 MG TAB PO SCH (08:28)
[2017-07-01] MEDS: OLANZapine 5 MG TAB PO SCH (08:28)
--- NOTE | 2017-07-01 10:34 | HHI.DS ---
Psychiatry Discharge Summary Inpatient Psychiatric care?: Yes Advance Directive: No Reason Not Provided: doent have. Mental Health AdvanceDirective: No Health Care Proxy: No Admission Admission Date Jun 29, 2017 at 22:07 Admission Diagnosis: (1) Schizophrenia, paranoid, chronic ICD Code: F20.0 - Paranoid schizophrenia (2) Cannabis abuse ICD Code: F12.10 - Cannabis abuse, uncomplicated Brief History Mr. Curran is a 31-year-old male with a history of schizophrenia brought into the emergency department under a [place] act alleging that he was throwing items at cars in the road and passersby. Patient was recently discharged from the inpatient psychiatric unit on 06/22. I did speak with his mother on 06/28 regarding need for prior auth for Zyprexa, which was completed by [facility]. She also shared with me at that time that patient did not follow up with his outpatient provider as scheduled. EMR reviewed. Patient seen and examined with nurse. Chart reviewed. Case discussed with nursing staff who reports the patient was somewhat agitated overnight and required Ativan PRN. On my exam, patient presents as malodorous, although he is less visibly disheveled than when he was first admitted last time. Likewise , he is less disorganized. He is presently calm. He says that he has come in "because they say I was throwing things in the road." He initially denies doing so but then says that he was doing so because he felt like he was being harassed by a "black lorri." He also alleges that another "black lorri always puts something in my food: ass or tip." He says that this fear of food contamination has caused him to subsist on Skittles for the last day or two. He is somewhat paranoid regarding his mother. He also believes he is a ranger and says that the police disrespected him by not recognizing this fact. He denies any SI or HI. Denies AVH but appears internally preoccupied. Affect is blunted. Remainder of the psychiatric ROS is negative. No physical complaints. Past psychiatric history: History of schizophrenia. Follows outpatient with [facility]. He confirms that he did not follow up on June 27. Recent hospitalization here at [facility] from 06/16-. Tobacco Use In Past 30 Days: No Tobacco Past 30 Days Alcohol Use: Never Hospital Course Patient admitted to a locked, inpatient psychiatric unit. Appropriate precautions in place throughout patient's hospital stay. Patient seen and examined on the unit by psychiatry and also visited by counselor. Previously efficacious psychotropic medications were resumed. With patient's mother's permission (acting as HCS), patient was started on long-acting injectable Abilify Maintena. There was no evidence of any suicidality or homicidality on the inpatient unit. Patient's psychiatric symptoms improved rapidly with resumption of previously efficacious medications. On the day of discharge: Patient seen and examined with nurse. Chart reviewed. Case discussed in treatment team. Per nursing staff, no significant behavioral disturbance overnight. The patient has not required any ETOs or PRNs overnight. On my examination today, the patient's presenting psychotic symptoms seem considerably attenuated. He denies any suicidal or homicidal ideation, intent or plan on direct questioning and contracts for safety. He agrees not to throw items anymore. No mood symptoms. He says that he is "ready to go home." I have discussed the case with the patient's mother at length. She is comfortable receiving patient home today, and she is now agreeable to initiation of Abilify Maintena prior to discharge. She is also supportive of initiation of petition for outpatient commitment, and I explain that patient will need to present for court on the next [place] [address] day. I emphasize the importance of ensuring that patient follows up with outpatient provider and remains adherent with medications. Psychoeducation provided with particular focus on the often chronically poor insight and judgement of patients with primary psychotic illnesses. Weighing the relevant factors and based on the available evidence, I repairer engine production that the patient does not meet criteria for ongoing involuntary hospitalization under the [place] act. He is requesting discharge today. He does in my judgment meet criteria for involuntary outpatient commitment, and I have initiated a petition for involuntary outpatient commitment and consulted for a second opinion. I did discuss the case briefly with [facility] case packer and sealer who will work with patient as part of outpatient commitment program when case packer and sealer came to evaluate the patient on the unit today. Patient will be discharged today into mother's care with psychiatric follow-up as arranged by counselor. Patient is also to follow-up with primary care. We have filled the patient's prescriptions, except for the next dose of Abilify Maintena, prior to discharge so that this will not be a barrier to medication adherence. Patient to return to psychiatric emergency room for any concerning psychiatric symptoms. Results Blood Pressure 119 / 71 Vital Signs Date Time Temp Pulse Resp B/P (MAP) Pulse Ox O2 Delivery O2 Flow Rate FiO2 07/01/17 05:36 97.2 93 18 119/71 (87) 99 06/29/17 21:18 Room Air Laboratory Tests Test 06/29/17 20:57 06/29/17 21:20 Neutrophils (%) (Auto) 71.1 % (16.0-70.0) Aspartate Amino Transf (AST/SGOT) 39 U/L (15-37) Estimat Glomerular Filtration Rate 74 ML/MIN (>89) Summary of Procedures None done Imaging None done Pending results at discharge: No Medications # of Antipsychotic meds at D/C: 2 Appropriate >1 Antipsych meds?: 4 Approp Antipsych med options 1 - Minimum of three failed multiple trials of monotherapy. 2 - Documented plan to taper to monotherapy due to previous use of multiple meds OR cross-taper in progress at D/C. 3 - Documentation of augmentation of Clozapine. 4 - Justification other than those listed in allowable values 1-3, document here : Required multiple antipsychotics for acute stabilization Discharge Discharge Date: Jul 01, 2017 Discharge Diagnosis: (1) Schizophrenia, paranoid, chronic Diagnosis: Principal (improved versus admission) ICD Code: F20.0 - Paranoid schizophrenia (2) Cannabis abuse Diagnosis: Secondary ICD Code: F12.10 - Cannabis abuse, uncomplicated Pt Condition on Discharge: Stable Discharge Disposition: Discharge Home Discharge Instructions Diet Instructions: As Tolerated, No Restrictions Activities you can perform: Weight Bearing as Ema [facility]: Jul 04, 2017 Appointment Time: 2:15 pm New Medications: Aripiprazole ER Inj (Abilify Maintena ER Inj) 400 Mg Susp 400 MG IM Q28D for Mental Health, #1 INJECTION 0 Refills This dose of Abilify Maintena due on 07/29/2017. Changed Medications: Aripiprazole (Abilify) 30 Mg Tab 30 MG PO DAILY for Mental Health for 14 Days, #14 TAB 0 Refills (Changed from: 15; 15; Refills: 1) Continue taking oral Abilify for 14 days and then stop. It is critical that you get your next Abilify Maintena injection on 12/1. Continued Medications: Olanzapine (Olanzapine) 5 Mg Tab 5 MG PO BID for Mental Health for 15 Days, #30 TAB 1 Refill (This prescription has been renewed) Discharge Time > 30 minutes Mental Status Examination Appearance: Appropriate Consciousness: Alert Orientation: Person, Place (at least) Motor Activity: Other (No abnormal motor movements noted.) Speech: Unremarkable Language: Adequate Fund of Knowledge: Adequate Attention and Concentration: Adequate (Fair) Memory: Unremarkable Mood: Appropriate Affect: Blunt Thought Process & Associations: Linear Thought Content: Delusional (mild) Hallucination Type: None Delusion Type: Paranoid (significantly attenuated) Suicidal Ideation: No Suicidal Plan: No Suicidal Intention: No Homicidal Ideation: No Homicidal Plan: No Homicidal Intention: No Insight: Poor (chronic) Judgment: Poor (chronic) Discharge/Advance Care Plan Health Problems: (1) Schizophrenia, paranoid, chronic (2) Cannabis abuse Goals to promote your health * To prevent worsening of your condition and complications * To maintain your health at the optimal level Directions to meet your goals Take your medications as prescribed Follow your dietary instruction Follow activity as directed Keep your appointments as scheduled Take your immunizations and boosters as scheduled If your symptoms worsen call your PCP, if no PCP go to Urgent Care Center or Emergency Room For 21/03 questions related to your inpatient stay or results of tests pending at discharge, please contact Dr. Wing Haines at Smoking is Dangerous to Your Health. Avoid second hand smoking Wing Haines MD Jul 01, 2017 10:34
[2017-07-01] MEDS ORDERED: OLAN5TAB PO (10:39)
[2017-07-01] MEDS ORDERED: ARIP400I IM (10:39)
[2017-07-01] MEDS ORDERED: ABIL30TA2 PO (10:39)
--- NOTE | 2017-07-01 10:45 | PD.PSY.CON ---
Provisional Diagnosis Admission Date Jun 29, 2017 at 22:07 [place] I. 1. Schizophrenia, paranoid type, acute exacerbation 2. Cannabis abuse (although most recent UTox negative) [place] II. Deferred History of Present Illness Service Psychiatry Consult Requested By Dr. Haines Reason for Consult Second opinion petition supporting petition for involuntary outpatient placement Primary Care Physician Unknown HPI Mr. Curran is a 31-year-old male with a history of schizophrenia brought into the emergency department under a [place] act alleging that he was throwing items at cars in the road and passersby. Patient was recently discharged from the inpatient psychiatric unit on 06/22. I did speak with his mother on 06/28 regarding need for prior auth for Zyprexa, which was completed by [facility]. She also shared with me at that time that patient did not follow up with his outpatient provider as scheduled. EMR reviewed. Patient seen and examined with nurse. Chart reviewed. Case discussed with nursing staff who reports the patient was somewhat agitated overnight and required Ativan PRN. On my exam, patient presents as malodorous, although he is less visibly disheveled than when he was first admitted last time. Likewise , he is less disorganized. He is presently calm. He says that he has come in "because they say I was throwing things in the road." He initially denies doing so but then says that he was doing so because he felt like he was being harassed by a "black lorri." He also alleges that another "black lorri always puts something in my food: ass or tip." He says that this fear of food contamination has caused him to subsist on Skittles for the last day or two. He is somewhat paranoid regarding his mother. He also believes he is a ranger and says that the police disrespected him by not recognizing this fact. He denies any SI or HI. Denies AVH but appears internally preoccupied. Affect is blunted. Remainder of the psychiatric ROS is negative. No physical complaints. Past psychiatric history: History of schizophrenia. Follows outpatient with [facility] for Psych[facility]. He confirms that he did not follow up on June 27. Recent hospitalization here at [place] from 06/16-. 07/01/17 Above note dictated by Dr. Haines reviewed and agreed with. Patient discussed with Dr. Haines patient seen on unit. Patient continues with little to no insight into his disease. Continues to vacillate about willingness to be compliant with medications in the community continues to show significant denial of mental illness. Dr. Haines has signed first opinion petition for involuntary outpatient placement. I agree with Dr. Haines that this patient past history of noncompliance medication denial of illness with very poor insight make some very good candidate for this outpatient involuntary program. Thus I will cosign second opinion petition supporting involuntary outpatient placement program Past Family Social History Coded Allergies: quetiapine (Unverified Allergy, Severe, Bradycardia, 04/13/17) Active Scripts Aripiprazole ER Inj (Abilify Maintena ER Inj) 400 Mg Susp, 400 MG IM Q28D for Mental Health, #1 INJECTION 0 Refills This dose of Abilify Maintena due on 07/29/2017. Prov:Wing Haines MD 07/01/17 Olanzapine (Olanzapine) 5 Mg Tab, 5 MG PO BID for Mental Health for 15 Days, # 30 TAB 1 Refill Prov:Wing Haines MD 07/01/17 Aripiprazole (Abilify) 30 Mg Tab, 30 MG PO DAILY for Mental Health for 14 Days, #14 TAB 0 Refills Continue taking oral Abilify for 14 days and then stop. It is critical that you get your next Abilify Maintena injection on 07/29. Prov:Wing Haines MD 07/01/17 Current Medications Medications (Trade) Dose Ordered Sig/Cecilia Route Start Time Stop Time Status Last Admin (Abilify) 30 mg DAILY PO 06/30/17 09:00 07/01/17 08:28 (ZyPREXA) 5 mg BID PO 06/30/17 09:00 07/01/17 08:28 (Ativan) 1 mg Q6H PRN PO 06/29/17 22:30 06/29/17 22:48 (Ativan Inj) 1 mg Q6H PRN IM 06/29/17 22:30 06/30/17 05:29 (Benadryl) 50 mg Q6H PRN PO 06/29/17 23:00 06/29/17 22:48 (Benadryl Inj) 50 mg Q6H PRN IM 06/29/17 22:30 06/30/17 05:29 (Benadryl) 50 mg HS PRN PO 06/29/17 22:30 (Tylenol) 650 mg Q4H PRN PO 06/29/17 22:30 (Milk Of Magnesia Liq) 30 ml DAILY PRN PO 06/29/17 22:30 (Mag-Al Plus Susp Liq) 30 ml Q6H PRN PO 06/29/17 22:30 (Habitrol 21 Mg Patch.24 Hr) 1 patch DAILY T-DERMAL 06/30/17 09:00 Miscellaneous Information 1 HS T-DERMAL 06/30/17 21:00 Patient Own Medication Abilify Maintena 400mg... ONCE IM 07/01/17 10:45 UNV Patient's Strengths (min. 2) In a monitored setting. Verbally fluent. Physical Exam Vital Signs Vital Signs Date Time Temp Pulse Resp B/P (MAP) Pulse Ox O2 Delivery O2 Flow Rate FiO2 07/01/17 05:36 97.2 93 18 119/71 (87) 99 06/29/17 21:18 Room Air Mental Status Examination Appearance: Disheveled (mild), Malodorous Consciousness: Alert Orientation: Person, Place Motor Activity: Other (no motoric abnormalities noted) Speech: Other (somewhat rambling but within normal limits for rate, tone and volume) Language: Adequate Fund of Knowledge: Adequate Attention and Concentration: Easily Distracted Memory: Unremarkable (likely some degree of confabulation in the setting of his psychosis but otherwise unremarkable) Mood: Appropriate Affect: Blunt Thought Process & Associations: Disorganized (mild) Thought Content: Bizarre thinking, Delusional Hallucination Type: None (denies AVH) Delusion Type: Paranoid Suicidal Ideation: No Suicidal Plan: No Suicidal Intention: No Homicidal Ideation: No Homicidal Plan: No Homicidal Intention: No Insight: Poor Judgment: Poor Assessment & Plan Problem List: (1) Schizophrenia, paranoid, chronic ICD Codes: F20.0 - Paranoid schizophrenia (2) Cannabis abuse ICD Codes: F12.10 - Cannabis abuse, uncomplicated Assessment & Plan Estimated LOS: days Request HC Surrog/Guard Advoc?: Yes Ricci Ashley MD Jul 01, 2017 10:45
[2017-07-01] MEDS ORDERED: ABILIFY MAINTENA 400 MG IM ONE (12:00)
== END 2017-07-01 17:40 | disposition home or self-care (01) | DRG 885 ==
LOC: NEPJ 19:57 → NEDA 22:07 → H270 22:25
PROVIDERS: ADMIT Psychiatry & Neurology Psychiatry; ATTEND Psychiatry & Neurology Psychiatry
DX: F20.0 Paranoid schizophrenia (principal); F12.10 Cannabis abuse, uncomplicated; Z79.899 Other long term (current) drug therapy; F43.10 Post-traumatic stress disorder, unspecified; Z72.0 Tobacco use
CPT/HCPCS: 80053; 80307; 85025; 93005; 99285; J1200; J2060; Q0163